=== PATIENT | male | born 1965 | race Caucasian/White ===

== ENCOUNTER 2020-11-23 12:41 | Emergency (ER) | payer OTHER ==
[~2020-11-23] VITALS: Ht 182.9 cm; Wt 125.0 kg
[2020-11-23] MEDS ORDERED: atenolol PO (12:57)
[2020-11-23] MEDS ORDERED: PANT20TA6 PO (12:57)
[2020-11-23] MEDS ORDERED: NAPR-849 PO (12:57)
[2020-11-23] MEDS ORDERED: MORPHINE 4 MG/ML 1ML VIAL/SYRINGE (J2270) IV ONE (13:35)
[2020-11-23] MEDS ORDERED: TETANUS IMMUNE GLOBULIN (HUMAN) 250 UNITS/ML SYRINGE (J1670)(90389) IM ONE (14:05)
--- NOTE | 2020-11-23 14:37 | REP ---
INDICATION: trauma COMPARISON: None. TECHNIQUE: AP, lateral, bilateral oblique views left hand. FINDINGS: Examination made available for interpretation on PACS at 2:30 p.m. There appears to be a comminuted angulated fracture at the distal radial metaphysis along with ulnar styloid fracture and overlying soft tissue swelling. Lateral view demonstrates soft tissue swelling over the metacarpophalangeal region. No other fracture or dislocation identified. IMPRESSION: Angulated comminuted fracture of the distal radial metaphysis and ulnar styloid fracture. <Electronically signed by Bean Barrientos > 11/23/20 [id number]
--- NOTE | 2020-11-23 14:38 | REP ---
INDICATION: trauma COMPARISON: None. TECHNIQUE: AP and lateral left forearm FINDINGS: There is a comminuted angulated fracture of the distal radial metadiaphysis and ulnar styloid fracture along with overlying soft tissue swelling. Fracture is anteriorly angulated. IMPRESSION: Comminuted angulated fracture of the distal radial metadiaphysis and ulnar styloid fracture.. <Electronically signed by Bean Barrientos > 11/23/20 [id number]
--- NOTE | 2020-11-23 14:40 | REP ---
INDICATION: trauma COMPARISON: None. TECHNIQUE: AP, lateral, oblique views left wrist. FINDINGS: There is a comminuted volar angulated fracture of the distal radial metadiaphysis which appears to extend to the radial articular surface. Ulnar styloid fracture is identified. Carpal bones are grossly intact although subtle injury cannot be excluded along the radial aspect of the carpal bones. IMPRESSION: Comminuted angulated fracture of the distal radial metadiaphysis and ulnar styloid fracture. No obvious carpal bone injury identified although evaluation is limited by positioning. <Electronically signed by Bean Barrientos > 11/23/20 [id number]
--- NOTE | 2020-11-23 14:47 | REP ---
INDICATION: trauma COMPARISON: None. TECHNIQUE: AP, lateral, bilateral oblique views of the left knee. FINDINGS: There is a minimally displaced intra-articular fracture involving the medial tibial plateau running inferiorly into the proximal metaphysis. There also appears to be a nondisplaced fracture involving the proximal fibula. Associated surrounding soft tissue swelling and presumed diffusion. IMPRESSION: Tibial plateau fracture. Proximal fibular fracture. <Electronically signed by Bean Barrientos > 11/23/20 [id number]
[2020-11-23 14:49] LABS: BASO # 0.1 10^3/uL (0.0-0.2); BASO % 0.5 % (0.0-1.0); EOS # 0.1 10^3/uL (0.0-0.5); EOS % 0.6 % (0.0-3.0); HEMATOCRIT 46.1 % (42.0-52.0); HEMOGLOBIN 15.7 g/dl (13.5-17.5); LYMPH % 7.8 % (24.0-44.0); MEAN CORPUSCULAR HEMOGLOBIN 33.1 pg (27.0-33.0); MEAN CORPUSCULAR HGB CONC 34.1 g/dl (32.0-36.5); MEAN CORPUSCULAR VOLUME 97.3 fl (80.0-96.0); MONO # 1.1 10^3/uL (0.0-0.8); MONO % 8.3 % (2.0-8.0); NEUTROPHILS # 10.6 10^3/uL (1.5-8.5); NEUTROPHILS % 82.4 % (36.0-66.0); PLATELET COUNT, AUTOMATED 174 10^3/uL (150-450); RED BLOOD COUNT 4.74 10^6/uL (4.30-6.10); WHITE BLOOD COUNT 12.8 10^3/uL (4.0-10.0)
--- NOTE | 2020-11-23 14:49 | REP ---
INDICATION: trauma COMPARISON: None. TECHNIQUE: PA and lateral. FINDINGS: The mediastinum and cardiac silhouette are normal. The lung man are clear and without acute consolidation, effusion, or pneumothorax. The skeletal structures are intact and normal. IMPRESSION: No acute cardiopulmonary process. <Electronically signed by Bean Barrientos > 11/23/20 [id number]
--- NOTE | 2020-11-23 14:50 | REP ---
INDICATION: trauma COMPARISON: None. TECHNIQUE: AP and lateral views of the left tibia/fibula. FINDINGS: Nondisplaced tibial plateau fracture and nondisplaced fracture of the proximal fibula noted. Overlying soft tissue swelling. Mid to distal tibia/fibula appear grossly intact. No subcutaneous emphysema or foreign body. IMPRESSION: Tibial plateau fracture and proximal fibular fracture noted. <Electronically signed by Bean Barrientos > 11/23/20 [id number]
[2020-11-23 15:12] LABS: BLOOD UREA NITROGEN 17 MG/DL (7-18); CALCIUM LEVEL 8.8 MG/DL (8.5-10.1); CARBON DIOXIDE LEVEL 25 MEQ/L (21-32); CHLORIDE LEVEL 108 MEQ/L (98-107); CK-MB VALUE MASS 1.7 NG/ML (<3.6); CPK CREATINE PHOSPHOKINASE 149 U/L (39-308); CREATININE FOR GFR 1.09 MG/DL (0.70-1.30); GLOMERULAR FILTRATION RATE > 60.0 (>56); GLUCOSE, FASTING 114 MG/DL (70-100); MB/CK RELATIVE INDEX 1.14 (< OR =4); POTASSIUM SERUM 4.2 MEQ/L (3.5-5.1); SODIUM LEVEL 139 MEQ/L (136-145); TROPONIN I < 0.02 NG/ML (< 0.10)
[2020-11-23] MEDS ORDERED: ONDANSETRON 4MG/2ML VIAL IV ONE ×2 (15:45)
--- NOTE | 2020-11-23 16:41 | ER ---
ER CONSULTATION DATE: 11/23/2020 CHIEF COMPLAINT: Left tibial plateau fracture and left distal radius fracture. HISTORY OF PRESENT ILLNESS: Dr. Lomeli, the qualified medical practitioner, called me from the [facility] Emergency Room today at approximately 3 p.m. Patient apparently fell into a tree operating some sort of machinery. They sustained a left tibial plateau displaced fracture as well as left distal radius fracture. Per the history per Dr. Lomeli, this is a closed, neurovascularly intact injury. No other injuries. No other concerns; however, apparently the patient does have elevated blood pressure that Dr. Lomeli is attempting to get control, over 205 systolic. Radiographs reviewed show a left, slightly comminuted transverse fracture of the distal radius in the metaphyseal region. There is slight angulation. Per the radiologist, a comminuted angulated fracture of the distal radial metaphyseal metadiaphysis and ulnar styloid fracture. No obvious carpal bone injury. There were also left knee radiographs obtained. Per the radiologist, this demonstrates tibial plateau fracture and proximal fibula fracture. Minimally displaced intra-articular fracture involving the medial tibial plateau, soft tissue swelling, and presumed effusion. ASSESSMENT AND PLAN: This 55-year-old man has a left distal radius metaphyseal fracture and a left undisplaced medial tibial plateau fracture. I recommend nonweightbearing, left lower extremity, with a knee immobilizer. In terms of the left distal radius fracture, I recommend immobilization with a volar splint. Followup in clinic tomorrow to plan for surgery for the wrist fracture. The tibial plateau fracture appears to be nondisplaced and may be treated nonoperatively with nonweightbearing and immediate passive range of motion 0-90 degrees. The patient's blood pressure needs to be under control for outpatient management of this problem. Dr. Lomeli understands and had no further questions or concerns. [facility]
[2020-11-23] MEDS ORDERED: PERC5TAB12 PO (16:44)
[2020-11-23] MEDS ORDERED: ZOFR4TAB16 PO (16:44)
[2020-11-23 16:52] VITALS: BP 148/82
--- NOTE | 2020-11-24 08:18 | ECGEPIP ---
[facility] - ED Test Date: 2020-11-23 Pat Name: LINDA COOPER Department: Room: - Gender: Male Audio/Video Engineer: KG : [id number] Requested By: JAMES Blanco Order Number: [id number] Reading MD: Venkatesh Kitchen Measurements Intervals [place] Rate: 95 P: 59 GA: 160 QRS: -6 QRSD: 86 T: 38 QT: 376 QTc: 472 Interpretive Statements Normal sinus rhythm with sinus arrhythmia with occasional supraventricular premature complexes NO PRIORS FOR COMPARISON Electronically Signed on 11-24-2020 8:18:00 EDT by Venkatesh Kitchen
--- NOTE | 2020-11-24 09:04 | HPE ---
HISTORY AND PHYSICAL DATE OF ADMISSION: 11/23/2020 CHIEF COMPLAINT: Left distal radius fracture and left tibial plateau fracture (Worker's Compensation claim). 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 He had an incident where the machine was out of control and he ran into what sounds like some forest or trees. He is seen today at [facility] Emergency Department. No prior pain or problems with the wrist or left lower extremity. He is right-hand dominant. PAST MEDICAL HISTORY: Includes hypertension and gastroesophageal reflux disease (GERD) as well as reflex sympathetic dystrophy of his right upper extremity. He is on disability for that. He used to be a [employer] supervisor. He ended up with a bad back in 2005. MEDICATIONS: 1. Naproxen 2. Pantoprazole 3. Atenolol ALLERGIES: CODEINE, TETANUS AND DIPHTHERIA TOXOIDS. SOCIAL HISTORY: He is a nonsmoker. He chews a tin of tobacco every two weeks. He is not doing any intravenous or illicit street drugs. He lives with his . PHYSICAL EXAMINATION: This is a well-appearing, 55-year-old man. He is talkative, pleasant. Vital signs are stable. His blood pressure is down to 165 systolic. Closed injury to both his wrists and left knee. It is able to hold his left knee out straight. No pain to palpation of both the thigh or distal tibia. Pain to palpation of above the knee. There is a small to moderate sized effusions. Normal sensation to the foot, superficial and deep peroneal nerves as well as saphenous, sural and tibial. Strong pedal pulses. Appears to wiggle his toes, dorsiflex and plantar flex his foot. In terms of his left wrist, there is slight swelling dorsally. A very small abrasion there. No open injury. Hand is warm and well perfused. Forearm compartments are soft. Strong radial pulse. Normal sensation and motor function in median, radial and ulnar nerves as well as anterior interosseous nerve (AIN)/posterior interosseous nerve (PIN). Radiographs were reviewed. Wrist x-ray demonstrates a comminuted angulated fracture of the distal radial metaphysis, normal styloid; no obvious carpal bone injury identified. Tibia and fibula x-rays revealed tibial plateau fracture and proximal fibula fracture. It appears to be intraarticular and mostly of the medial tibial plateau with some mild comminution there; very minimal to no displacement; no widening. Radius and ulna x-rays demonstrated similar comminuted angulated fracture distal radial metadiaphysis. Knee x-ray: tibial plateau fracture and proximal fibula fracture. Hand x-ray: Negative for hand fractures. ASSESSMENT AND PLAN: This 55-year-old man, Worker's Compensation claim, has a left distal radial metadiaphyseal fracture with dorsal angulation as well as a nondisplaced medial tibial plateau fracture. His blood pressure has been stabilized now at this point. I explained to him his options, both nonsurgical and surgical, for both injuries. He would like to treat this as an outpatient. I placed him in a knee immobilizer, strict recommendations for nonweightbearing at this point monitor symptoms of pain, swelling or other red flags, and to immobilize appropriately as he would be at risk for deep vein thrombosis (DVT) potentially. I offered to admit him to the hospital; he declined this. He would rather try to treat this as an outpatient despite the fact that it would be difficult to ambulate. His left wrist would generally be indicated for open reduction, internal fixation with volar plating. One could consider closed reduction casting, nonoperative management or other forms of treatment. He would like to go ahead with open reduction, internal fixation with volar plating as an outpatient. For now, the emergency department physician has placed a volar fiberglass splint, immobilized the hand and wrist. The patient already has follow up tomorrow morning at 8 a.m. I advised rest, ice, Tylenol, elevation, anti-inflammatories as needed. Follow up in the clinic tomorrow. Patient understands and had no further questions. Communicated directly with patient as well as Dr. Lomeli, the emergency department physician oncology physician assistant. [facility]
== END 2020-11-23 16:54 | disposition home or self-care (01) ==
LOC: M ED 12:41
DX: S82.145A Nondisplaced bicondylar fracture of left tibia, initial encounter for closed fracture (principal); S52.502A Unspecified fracture of the lower end of left radius, initial encounter for closed fracture; S52.612A Displaced fracture of left ulna styloid process, initial encounter for closed fracture; S80.211A Abrasion, right knee, initial encounter; V67.0XXA Driver of heavy transport vehicle injured in collision with fixed or stationary object in nontraffic accident, initial encounter; Y92.89 Other specified places as the place of occurrence of the external cause; Y99.0 Civilian activity done for income or pay; I10 Essential (primary) hypertension; K21.9 Gastro-esophageal reflux disease without esophagitis; G90.50 Complex regional pain syndrome I, unspecified; Z79.899 Other long term (current) drug therapy; Z88.5 Allergy status to narcotic agent; Z88.7 Allergy status to serum and vaccine; F17.220 Nicotine dependence, chewing tobacco, uncomplicated
CPT/HCPCS: 71046; 73090; 73110; 73130; 73564; 73590; 80048; 82550; 82553; 84484; 85025; 93005; 93041; 94760; 96374; 99284; J2270